=== PATIENT | female | born 1975 | race Caucasian/White ===

== ENCOUNTER 2017-07-24 15:53 | Emergency (ER) | payer OTHER ==
--- NOTE | 2017-07-24 16:13 | ER Document Report ---
ED Medical Screen (RME) - General Chief Complaint: Headache Stated Complaint: HEAD PAIN Time Seen by Provider: 07/24/17 16:09 Mode of Arrival: Wheelchair Information source: Patient, Relative Notes: 42-year-old female history of ICP presents with complaints of headache sudden approximately 30 minutes ago. Since then family member notes the patient is not acting appropriately I have greeted and performed a rapid initial assessment of this patient. A comprehensive ED assessment and evaluation of the patient, analysis of test results and completion of the medical decision making process will be conducted by additional ED providers. PHYSICAL EXAMINATION: GENERAL: Well-appearing, well-nourished and in no acute distress. HEAD: Atraumatic, normocephalic. EYES: Pupils equal round extraocular movements intact, conjunctiva are normal. ENT: Nares patent NECK: Normal range of motion LUNGS: No respiratory distress Musculoskeletal: Normal range of motion NEUROLOGICAL: Stuttered speech PSYCH: Normal mood, normal affect. SKIN: Warm, Dry, normal turgor, no rashes or lesions noted. - Related Data Allergies/Adverse Reactions: codeine Allergy (Verified 07/24/17 15:58) erythromycin base Allergy (Verified 07/24/17 15:58) Physical Exam - Vital signs Vitals: Temp Pulse Resp BP Pulse Ox 98.5 F 94 16 140/99 H 97 07/24/17 16:00 07/24/17 16:00 07/24/17 16:00 07/24/17 16:00 07/24/17 16:00 Course - Vital Signs Vital signs: Temp Pulse Resp BP Pulse Ox 98.5 F 94 16 140/99 H 97 07/24/17 16:00 07/24/17 16:00 07/24/17 16:00 07/24/17 16:00 07/24/17 16:00
[2017-07-24 16:38] LABS: ABSOLUTE BASOPHILS # (AUTO) 0.1 10^3/uL (0.0-0.2); ABSOLUTE LYMPHOCYTES (AUTO) 3.6 10^3/uL (0.5-4.7); ABSOLUTE MONOCYTES (AUTO) 0.9 10^3/uL (0.1-1.4); ABSOLUTE NEUT (AUTO) 10.4 10^3/uL (1.7-8.2); BASOPHILS % (AUTO) 0.6 % (0-2); EOSINOPHILS % (AUTO) 0.2 % (0-6); HEMOGLOBIN 12.6 g/dL (12.0-15.5); LYMPHOCYTES % (AUTO) 23.8 % (13-45); MEAN CORPUSCULAR HEMOGLOBIN 24.2 pg (27.0-33.4); MEAN CORPUSCULAR HGB CONC 32.2 g/dL (32.0-36.0); MEAN CORPUSCULAR VOLUME 75 fl (80-97); MONOCYTES % (AUTO) 5.8 % (3-13); PLATELET COUNT 282 10^3/uL (150-450); RED BLOOD COUNT 5.19 10^6/uL (3.72-5.28); SEGMENTED NEUTROPHILS % (AUTO) 69.6 % (42-78); TOTAL CELLS COUNTED % (AUTO) 100 %
[2017-07-24 16:57] LABS: ALANINE AMINOTRANSFERASE 29 U/L (9-52); ALBUMIN 4.5 g/dL (3.5-5.0); ALKALINE PHOSPHATASE 86 U/L (38-126); ANION GAP 13 (5-19); ASPARTATE AMINO TRANSFERASE 21 U/L (14-36); BILIRUBIN,DIRECT 0.4 mg/dL (0.0-0.4); BILIRUBIN,TOTAL 0.5 mg/dL (0.2-1.3); BLOOD UREA NITROGEN 11 mg/dL (7-20); CALCIUM 9.6 mg/dL (8.4-10.2); CARBON DIOXIDE 21 mmol/L (22-30); CHLORIDE 107 mmol/L (98-107); CREATINE KINASE 73 U/L (30-135); GLUCOSE 87 mg/dL (75-110); SODIUM 141.3 mmol/L (137-145); TOTAL PROTEIN 7.5 g/dL (6.3-8.2)
[2017-07-24 17:09] LABS: CREATINE KINASE MB 0.63 ng/mL (<4.55); TROPONIN I < 0.012 ng/mL
--- NOTE | 2017-07-24 17:12 | RADIOLOGY REPORT (SQ) ---
EXAM DESCRIPTION: CTA HEAD COMPLETED DATE/TIME: 07/24/2017 4:54 pm REASON FOR STUDY: hx of ICP, headache COMPARISON: None. TECHNIQUE: Post IV contrast scanning, thin section axial imaging through the brain to evaluate the a rterial structures. Source and MIP images are saved and reviewed on PACS. Advanced 3D imaging as volume-rendering, MIPs, SSD performed? yes All CT scanners at this facility use dose modulation, iterative reconstruction, and/or weight based d osing when appropriate to reduce radiation dose to as low as reasonably achievable (ALARA). [facility]: Dose Right [facility]: CareDose [facility]: Dose Right [facility]: Teradose 4D [facility]: [place] CONTRAST TYPE AND DOSE: contrast/concentration: Isovue 370.00 mg/ml; Total Contrast Delivered: 70.0 ml; Total Saline Delivered: 75.0 ml RENAL FUNCTION: None required. The patient is less than 50 years old. LIMITATIONS: None. FINDINGS: [place]: The anterior, middle, posterior cerebral arteries are all patent. No ev idence of aneurysm or focal stenosis. POSTERIOR CIRCULATION: The distal vertebral arteries are patent as is the basilar artery. No aneurysm . Left vertebral artery is dominant, an anatomic variant BRAIN: Pre contrasted images demonstrate no CT evidence of acute intracranial hemorrhage, large aaliyah tory acute ischemic change, mass effect, or midline shift. Ventricles and extra-axial CSF spaces are normal. Paranasal sinuses mastoid air cells clear. No skull fracture. Post contrasted CTA imaging of the brain demonstrates no abnormal masses or enhancement. Normal circ le of [place] arterial vascular enhancement and normal enhancement of the dural venous sinuses. BONES: Intact as visualized. SINUSES: No fluid or mucosal thickening. OTHER: No other significant finding. IMPRESSION: NO CTA EVIDENCE OF STENOSIS OR ANEURYSM OF THE [place]. NO CT EVIDENCE OF ACUTE LARGE TERRITORY ISCHEMIC CHANGE, ACUTE INTRACRANIAL HEMORRHAGE MASS EFFECT OR MIDLINE SHIFT. TECHNICAL DOCUMENTATION: JOB ID: [id number] Quality ID # [id number]: Final reports with documentation of one or more dose reduction techniques (e.g., Au tomated exposure control, adjustment of the mA and/or kV according to patient size, use of iterative reconstruction technique) 2010 [employer]- All Rights Reserved
--- NOTE | 2017-07-24 17:28 | ER Document Report ---
ED Headache - General Chief Complaint: Headache Stated Complaint: HEAD PAIN Time Seen by Provider: 07/24/17 16:09 Mode of Arrival: Wheelchair Notes: The patient is a 42-year-old female, past medical history IICH, anxiety, ADHD, chronic migraines, insomnia, neck arthritis, presents after she heard a popping sensation in her right neck and then began to have some right sided headaches. She said the headache has improved on arrival to the ER, but is still dull. She has had this headache in the past She has not slept for 4 days and is trying 50 mg of trazodone without much relief of her symptoms. Patient denies fevers, nausea, vomiting, blurry vision, ataxia, focal weakness, numbness, tingling, back pain, chest pain or shortness of breath. - Related Data Allergies/Adverse Reactions: codeine Allergy (Verified 07/24/17 15:58) erythromycin base Allergy (Verified 07/24/17 15:58) Past Medical History - General Information source: Patient, Relative - Social History Smoking Status: Unknown if Ever Smoked Family History: Reviewed & Not Pertinent Patient has suicidal ideation: No Patient has homicidal ideation: No Renal/ Medical History: Denies: Hx Peritoneal Dialysis Review of Systems - Review of Systems Notes: REVIEW OF SYSTEMS: CONSTITUTIONAL: -fevers, -chills EENT: -eye pain, -difficulty swallowing, -nasal congestion CARDIOVASCULAR: -chest pain, -syncope. RESPIRATORY: -cough, -SOB GASTROINTESTINAL: -abdominal pain, -nausea, -vomiting, -diarrhea GENITOURINARY: -dysuria, -hematuria MUSCULOSKELETAL: -back pain, +neck pain SKIN: -rash or skin lesions. HEMATOLOGIC: -easy bruising or bleeding. LYMPHATIC: -swollen, enlarged glands. NEUROLOGICAL: -altered mental status or loss of consciousness, +headache, - neurologic symptoms PSYCHIATRIC: -anxiety, -depression. ALL OTHER SYSTEMS REVIEWED AND NEGATIVE. Physical Exam - Vital signs Vitals: Temp Pulse Resp BP Pulse Ox 98.5 F 94 16 140/99 H 97 07/24/17 16:00 07/24/17 16:00 07/24/17 16:00 07/24/17 16:00 07/24/17 16:00 - Notes Notes: PHYSICAL EXAMINATION: GENERAL: Well-appearing, well-nourished and in no acute distress. HEAD: Atraumatic, normocephalic. EYES: Pupils equal round and reactive to light, extraocular movements intact, sclera anicteric, conjunctiva are normal. ENT: nares patent, oropharynx clear without exudates. Moist mucous membranes. NECK: Normal range of motion, supple without lymphadenopathy LUNGS: Breath sounds clear to auscultation bilaterally and equal. No wheezes rales or rhonchi. HEART: Regular rate and rhythm without murmurs ABDOMEN: Soft, nontender, normoactive bowel sounds. No guarding, no rebound. No masses appreciated. EXTREMITIES: Normal range of motion, no pitting or edema. No cyanosis. NEUROLOGICAL: Cranial nerves grossly intact. Normal speech, normal gait. Normal sensory and motor exams. PSYCH: Normal mood, normal affect. SKIN: Warm, Dry, normal turgor, no rashes or lesions noted. Course - Re-evaluation Re-evalutation: Patient appears well. CTA head ordered due to 30 minutes of a right-sided headache that started quickly. The CTA head did not show any acute abnormalities or subarachnoid hemorrhages. Patient's neuro exam is normal. Spoke to patient about the less than 1% chance of a subarachnoid hemorrhage due to her symptoms that began less than 6 hours ago and the risks/benefits of an LP. Her and her consent and lumbar puncture was attempted multiple times. However this was unsuccessful. Patient was given a headache cocktail and says she feels much better. Offered patient a repeat lumbar puncture with another doctor, but since she feels much better and her CT is normal, she declines at this time. She has an appointment with her psychiatrist in 3 days and her neurologist is in [place] with an upcoming appointment. At this time, she appears well and have low suspicion for meningitis, SAH or ICH at this time. - Vital Signs Vital signs: Temp Pulse Resp BP Pulse Ox 98.6 F 89 16 123/74 99 07/24/17 19:38 07/24/17 19:38 07/24/17 19:38 07/24/17 19:38 07/24/17 19:38 - Laboratory Result Diagrams: 07/24/17 16:18 07/24/17 16:18 Laboratory results interpreted by me: 07/24/17 07/24/17 16:18 16:18 WBC 15.0 H MCV 75 L MCH 24.2 L RDW 16.0 H Absolute Neutrophils 10.4 H Carbon Dioxide 21 L - Diagnostic Test Radiology reviewed: Image reviewed, Reports reviewed Radiology results interpreted by me: CTA Head: NAD Procedures - Lumbar Puncture Lumbar puncture Time completed: 18:00 Consent obtained: Yes Lumbar puncture pre-procedure: Sterile PPE donned Patient position: Lying Needle size: 22 Lumbar puncture location: L3-L4 Anesthetic type: 1% Lidocaine w/epi mL's of anesthetic: 5 Amount/type of drainage: None Number of attempts: 4 Complications: Yes - Unsuccessful Discharge - Discharge Clinical Impression: Headache Qualifiers: Headache type: unspecified Headache chronicity pattern: unspecified pattern Intractability: not intractable Qualified Code(s): R51 - Headache Condition: Stable Disposition: HOME, SELF-CARE Additional Instructions: HEADACHE: The physician does not feel that the headache you are experiencing has a serious underlying cause. Most headaches are due to emotional stress, with resultant muscle tension (tension headache). Occasionally, headaches are secondary to changes in the blood vessels of the scalp (vascular headache and migraine headache). Sometimes, a headache is the first symptom of another developing illness, such as a viral infection. You have no evidence of stroke, bleeding, meningitis, or other serious cause of your headache. The treatment of headaches varies with the severity and cause of the pain. Not all headaches need pain shots. In fact, there is evidence that using narcotics for headaches may make them worse in the long run. The physician will determine the therapy that's in your best interest. If you develop a fever, if the headache is different from any you've previously experienced, or if the headache progressively worsens, then call your physician at once or go to the emergency room. REGLAN (METOCLOPRAMIDE): Reglan has been prescribed. This medicine affects the stomach and intestines. It can be used to treat nausea and vomiting, to prevent reflux of stomach acid up into the esophagus, or to increase the contractions of the stomach and intestines. It is often prescribed for esophagitis, and for paralysis of the stomach in diabetics. Reglan can cause either mild restlessness or drowsiness. You should contact the doctor at once if you become extremely restless, anxious, or cannot sleep, or if you develop uncontrollable motions of the lips, tongue, or jaw. Do not take alcohol with this medicine. Do not drive or operate machinery until you have been taking this medicine long enough to know how it affects you. Call the doctor if you develop abdominal pains, lightheadedness, black stool, or blood in the stool or vomitus. USE OF DIPHENHYDRAMINE: Diphenhydramine (Benadryl) is an antihistamine and has been recommended to help treat your headache and to prevent side effects of other medications used to treat headaches. The medication can be repeated four times daily. Age Elixir (12.5 mg/tsp) 25 mg pill adult 1-2 tabs Antihistamines may cause drowsiness, especially with the first dose. Do not operate machinery or drive while under the effects of the medication. Do not combine the medication with alcohol, or with any other medication without talking to your doctor. TORADOL INJECTION: You have been given an injection of ketorolac tromethamine (Toradol). This is an excellent, safe drug for pain control. It also has potent antiinflammatory action. You should have significant pain relief within about one hour. Toradol is not addicting and is non-sedating. It does not interfere with driving or work. Call or return if you develop itching, hives, shortness of breath, or rash. FOLLOW-UP CARE: If you have been referred to a physician for follow-up care, call the physician s office for an appointment as you were instructed or within the next two days. If you experience worsening or a significant change in your symptoms, notify the physician immediately or return to the Emergency Department at any time for re-evaluation. Forms: Elevated Blood Pressure Referrals: FACUNDO JAIMES MD [Primary Care Provider] - Follow up as needed MARIBEL BARAJAS MD [ACTIVE STAFF] - Follow up as needed
[2017-07-24] MEDS ORDERED: LIDOCAINE 1% INJ-PF (10 MG/ML) 30 ML SDV ONE (17:41)
[2017-07-24] MEDS ORDERED: DIPHENHYDRAMINE HCL 50 MG/ML VIAL IV ONE (18:17)
[2017-07-24] MEDS ORDERED: METOCLOPRAMIDE HCL INJ/PF 10 MG/2 ML SDV IV ONE (18:18)
[2017-07-24] MEDS ORDERED: KETOROLAC TROMETHAMINE INJ/PF 30 MG/1 ML SDV IV ONE (18:18)
[2017-07-24 19:40] VITALS: BP 123/74
== END 2017-07-24 19:38 | disposition home or self-care (01) ==
LOC: ER 15:53
PROC: 00JU3ZZ Inspection of Spinal Canal, Percutaneous Approach (ICD-10-PCS; principal; 2017-07-24)
DX: R51 Headache (principal); F41.9 Anxiety disorder, unspecified; F90.9 Attention-deficit hyperactivity disorder, unspecified type; Z88.6 Allergy status to analgesic agent; Z88.3 Allergy status to other anti-infective agents
CPT/HCPCS: 99284; 96374; 96375; 36415; 82553; 82550; 85025; 80053; 84484; 70496; 62270; J1200; J1885; J2765

== ENCOUNTER → 2017-08-18 | Outpatient (CLI) | payer OTHER ==
[2017-08-18 17:33] LABS: ALANINE AMINOTRANSFERASE 29 U/L (9-52); ALBUMIN 4.8 g/dL (3.5-5.0); ALKALINE PHOSPHATASE 82 U/L (38-126); ANION GAP 16 (5-19); ASPARTATE AMINO TRANSFERASE 21 U/L (14-36); BILIRUBIN,DIRECT 0.1 mg/dL (0.0-0.4); BILIRUBIN,TOTAL 0.2 mg/dL (0.2-1.3); BLOOD UREA NITROGEN 11 mg/dL (7-20); CARBON DIOXIDE 23 mmol/L (22-30); CHLORIDE 106 mmol/L (98-107); CHOLESTEROL 237.49 mg/dL (0-200); GLUCOSE 90 mg/dL (75-110); POTASSIUM 4.8 mmol/L (3.6-5.0); SODIUM 144.5 mmol/L (137-145); TOTAL PROTEIN 7.6 g/dL (6.3-8.2); TRIGLYCERIDES 205 mg/dL (<150)
[2017-08-18 17:45] LABS: DIRECT LDL 146 mg/dL (<100)
== END ==
LOC: OD 16:21
PROVIDERS: ATTEND Family Medicine
DX: E78.2 Mixed hyperlipidemia (principal); E55.9 Vitamin D deficiency, unspecified
CPT/HCPCS: 36415; 80053; 80061; 82306